=== PATIENT | male | born 1990 | race Caucasian/White ===

== ENCOUNTER 2017-09-17 02:17 | Emergency (ER) | payer BC, OTHER ==
[~2017-09-17] VITALS: Ht 182.9 cm; Wt 100.0 kg
[~2017-09-17 02:17] MED LIST: AMOX875T2 PO; TRAM50 PO
[2017-09-17 02:23] VITALS: BP 151/73; PULSE 92; RESP 18; TEMP 97.5; O2SAT 98
--- NOTE | 2017-09-17 03:13 | PD ---
HPI Chief Complaint: Laceration/Skin Injury Time Seen by Provider: 02:28 Travel History International Travel<30 days: No Contact w/Intl Traveler<30days: No Traveled to known affect area: No History of Present Illness HPI 27-year-old right-hand dominant white male presents emergency department for lacerations to his left forearm and hand which occurred prior to arrival with a pocket knife. The patient had been drinking alcohol. He had attempted to close the knife but slipped cutting his left palm and left forearm. He denies any numbness, tingling or weakness. He is up-to-date with immunizations. Pain is mild. No other injuries. PFSH Past Medical History ADHD: Yes Diminished Hearing: No Immunizations Current: Yes Tetanus Vaccination: < 5 Years Influenza Vaccination: No Past Surgical History Genitourinary Surgery: Yes (TESTICULAR SURGERY) Social History Alcohol Use: Yes (occasionally) Tobacco Use: No Substance Use: No Allergies-Medications (Allergen,Severity, Reaction): Coded Allergies: No Known Allergies (Verified , 05/10/14) Reported Meds & Prescriptions Reported Meds & Active Scripts Active Review of Systems General / Constitutional: No: Fever Eyes: No: Visual changes HENT: No: Headaches Cardiovascular: No: Chest Pain or Discomfort Respiratory: No: Shortness of Breath Gastrointestinal: No: Abdominal Pain Genitourinary: No: Dysuria Musculoskeletal: Positive: Pain Skin: Positive Other (Lacerations), No Rash Neurologic: No: Weakness Psychiatric: No: Depression Endocrine: No: Polydipsia Hematologic/Lymphatic: No: Easy Bruising Physical Exam Narrative GENERAL: This is a well-nourished, well-developed patient, in no apparent distress. SKIN: No rashes, ecchymoses or lesions. Warm and dry. HEAD: Atraumatic. Normocephalic. EYES: PERRL, EOMI, no discharge or injection. No scleral icterus. EARS: Clear NOSE: Nasal turbinates appear normal. THROAT: Mucosa pink and moist. Airway patent. NECK: Trachea midline. supple, moves head freely. LUNGS: Clear to auscultation. CV: Regular in rhythm. ABDOMEN: Soft nontender. EXT: No clubbing cyanosis or edema. Patient has lacerations to the left mid forearm volar surface measuring 3 cm. There is a second laceration involving the left palm measuring 4-1/2 cm. Lacerations go into the subcutaneous tissues. No foreign body. No nerve or vascular injury. Data Data Last Documented VS Vital Signs Date Time Temp Pulse Resp B/P (MAP) Pulse Ox O2 Delivery O2 Flow Rate FiO2 09/17/17 02:23 97.5 92 18 151/73 (99) 98 Orders Orders Ed Discharge Order (09/17/17 03:04) MDM Medical Decision Making Medical Screen Exam Complete: Yes Emergency Medical Condition: Yes Medical Record Reviewed: Yes Differential Diagnosis MDM: High Differential diagnoses: Fracture, sprain, strain, dislocation, contusion, neurovascular injury Narrative Course Patient's lacerations are closed with sutures. Procedures Procedure Narrative LACERATION LOCATION: Left forearm LENGTH: 3 cm NUMBER OF STITCHES/ASCENCION: 5 REPAIR: The area of the laceration was prepped with Betadine and sterilely draped. The laceration was infiltrated with 1% lidocaine with epinephrine . The wound was copiously irrigated and explored without evidence of foreign body , tendon injury or neurovascular injury. The wound was closed using 4-0 Prolene simple single. This was a simple single layer repair. A sterile dressing was applied. The patient was advised to keep the dressing clean and dry. Patient tolerated the procedure well. LACERATION LOCATION: Left forearm LENGTH: 4.5 cm NUMBER OF STITCHES/ASCENCION: 8 REPAIR: The area of the laceration was prepped with Betadine and sterilely draped. The laceration was infiltrated with 1% lidocaine with epinephrine . The wound was copiously irrigated and explored without evidence of foreign body , tendon injury or neurovascular injury. The wound was closed using 4-0 Prolene simple single. This was a simple single layer repair. A sterile dressing was applied. The patient was advised to keep the dressing clean and dry. Patient tolerated the procedure well. Diagnosis Primary Impression: Left forearm and left hand lacerations Patient Instructions: General Instructions Departure Forms: Tests/Procedures, Work Release Special Instructions: No work 2 days. Additional Instructions: Rest. Elevation. Keep clean and dry. Daily wound care with soap, water, Neosporin. Tylenol and Advil for pain. Sutures out in 14 days. Return to the ER for any problems. Disposition: 01 DISCHARGE HOME Condition: Stable Vikas Cervantes September 17, 2017 03:13
== END 2017-09-17 03:26 | disposition home or self-care (01) ==
LOC: NEPD 02:17
DX: S61.412A Laceration without foreign body of left hand, initial encounter (principal); S51.812A Laceration without foreign body of left forearm, initial encounter; W26.0XXA Contact with knife, initial encounter
CPT/HCPCS: 12002